=== PATIENT | female | born 1980 | race American Indian/Alaskan Native ===

== ENCOUNTER 2017-04-06 12:57 | Inpatient (IN) | payer OTHER, MEDICAID ==
[2017-04-06] MEDS ORDERED: Sodium Chloride 0.9% 1,000 ML IV ONE (13:27)
[2017-04-06] MEDS ORDERED: LORazepam 2 MG/ML Syringe IVPUSH ONE (13:28)
[2017-04-06] MEDS: Sodium Chloride 0.9% 10 ML Syringe FLUSH PRN ×2 (13:34→23:36)
[2017-04-06 13:44] LABS: CHLORIDE,CL 105 mmol/L (101-111); SODIUM,NA 138 mmol/L (135-145)
--- NOTE | 2017-04-06 14:18 | EDM.PDOC ---
ED HPI GENERAL MEDICAL PROBLEM - General Chief Complaint: General Stated Complaint: DOES NOT FEEL GOOD Time Seen by Provider: 04/06/17 13:30 Source of Information: Reports: Patient, RN, RN Notes Reviewed History Limitations: Reports: No Limitations - History of Present Illness INITIAL COMMENTS - FREE TEXT/NARRATIVE: Pt presents to the ER with c/o the feeling of having a panic attack. She states she is dizzy, weak, shaky, and anxious. She states she is a recovering alcoholic. She states she had not drank alcohol in a few months, but began drinking alcohol 2 nights ago. She states she drank a lot of alcohol, and that her last drink was yesterday afternoon/evening. She states she has had nausea and vomiting, as well as fever and chills for the past few days. She denies chest pain or sob. She states she has a history of iron deficient anemia, but has not been taking her iron pills lately. She states she would like to seek treatment for her alcohol abuse. She denies the need for help or referral, she states her mother would help her. Onset: Gradual Onset Date: 04/05/17 Severity: Moderate Improves with: Reports: None Worsens with: Reports: None Associated Symptoms: Reports: Fever/Chills, Nausea/Vomiting - Related Data Allergies Allergy/AdvReac Type Severity Reaction Status Date / Time No Known Allergies Allergy Verified 04/06/17 13:08 Home Meds: Home Meds . [No Known Home Meds] 04/06/17 [History] Past Medical History Hematologic History: Reports: Anemia - Infectious Disease History Infectious Disease History: Reports: Chicken Pox - Past Surgical History GI Surgical History: Reports: Appendectomy Social & Family History - Family History Family Medical History: Noncontributory - Tobacco Use Smoking Status *Q: Current Every Day Smoker Years of Tobacco use: 20 Packs/Tins Daily: 0.5 - Caffeine Use Caffeine Use: Reports: Coffee, Soda - Recreational Drug Use Recreational Drug Use: No ED ROS GENERAL - Review of Systems Review Of Systems: ROS reveals no pertinent complaints other than HPI. ED EXAM, GENERAL - Physical Exam Exam: See Below Exam Limited By: No Limitations General Appearance: Alert, WD/WN, Anxious Eye Exam: Right Eye: Bleeding (scleral hemorrhage, patient states this is weeks old from a trauma to the eye. ), Bilateral Eye: Normal Inspection Ears: Normal External Exam, Hearing Grossly Normal Nose: Normal Inspection Throat/Mouth: Normal Inspection, Normal Voice, No Airway Compromise Head: Atraumatic, Normocephalic Neck: Normal Inspection, Supple, Non-Tender, Full Range of Motion Respiratory/Chest: No Respiratory Distress, Lungs Clear, Normal Breath Sounds, No Accessory Muscle Use, Chest Non-Tender Cardiovascular: Normal Peripheral Pulses, Regular Rate, Rhythm, No Edema, No Gallop, No JVD, No Murmur, No Rub Peripheral Pulses: 2+: Radial (L), Radial (R) GI/Abdominal: Normal Bowel Sounds, Soft, Non-Tender, No Organomegaly, No Distention, No Abnormal Bruit, No Mass (Female) Exam: Deferred Rectal (Female) Exam: Deferred Back Exam: Normal Inspection, Full Range of Motion, NT Extremities: Normal Inspection, Normal Range of Motion, Non-Tender, Normal Capillary Refill, No Pedal Edema Neurological: Alert, Oriented, CN II-XII Intact, Normal Cognition, Normal Gait, Normal Reflexes, No Motor/Sensory Deficits Psychiatric: Normal Affect, Normal Mood Skin Exam: Warm, Dry, Intact, Normal Color, No Rash Lymphatic: No Adenopathy Course - Vital Signs Last Recorded V/S: Last Vital Signs Temp 98.9 F 04/06/17 15:15 Pulse 88 04/06/17 15:15 Resp 16 04/06/17 15:15 BP 113/64 04/06/17 15:15 Pulse Ox 98 04/06/17 15:15 - Orders/Labs/Meds Orders: Active Orders 24 hr Category Date Time Status Peripheral IV Care [RC] . DIRECTED Care 04/06/17 13:28 Active RED BLOOD CELLS LP [BBK] Stat Lab 04/06/17 13:15 Results TYPE AND SCREEN [BBK] Stat Lab 04/06/17 13:15 Results Sodium Chloride 0.9% [Normal Saline] 1,000 ml Med 04/06/17 13:27 Active IV .BOLUS Sodium Chloride 0.9% [Saline Flush] Med 04/06/17 13:27 Active 10 ml FLUSH ASDIRECTED PRN Peripheral IV Insertion Adult [OM.PC] Stat Oth 04/06/17 13:26 Ordered Medication Orders Sodium Chloride (Normal Saline) 1,000 mls @ 500 mls/hr IV .BOLUS ONE Stop: 04/06/17 15:26 Last Admin: 04/06/17 13:34 Dose: 500 mls/hr Sodium Chloride (Saline Flush) 10 ml FLUSH ASDIRECTED PRN PRN Reason: Keep Vein Open Last Admin: 04/06/17 13:34 Dose: 10 ml Labs: Laboratory Tests 04/06/17 04/06/17 04/06/17 Range/Units 13:15 13:15 13:15 WBC 5.8 (5.0-10.0) 10^3/uL RBC 3.64 L (4.2-5.4) 10^6/uL Hgb 6.7 L* (12.0-16.0) g/dL Hct 25.4 L (37.0-47.0) % MCV 69.8 L (80-100) fL MCH 18.4 L (27.0-34.0) pg MCHC 26.4 L (33.0-35.0) g/dL Plt Count 170 (150-450) 10^3/uL Neut % (Auto) 58.4 (42.2-75.2) % Lymph % (Auto) 31.4 (20.5-50.1) % [place] % (Auto) 8.3 H (2-8) % Eos % (Auto) 1.4 (1.0-3.0) % Baso % (Auto) 0.5 (0.0-1.0) % Sodium 138 (135-145) mmol/L Potassium 3.4 L (3.6-5.0) mmol/L Chloride 105 (101-111) mmol/L Carbon Dioxide 21.0 (21.0-31.0) mmol/L Anion Gap 15.4 BUN 5 L (7-18) mg/dL Creatinine 0.6 (0.6-1.3) mg/dL Est Cr Clr Drug Dosing 128.48 mL/min Estimated GFR (MDRD) > 60 BUN/Creatinine Ratio 8.33 Glucose 145 H (74-105) mg/dL Calcium 8.6 (8.4-10.2) mg/dl Total Bilirubin 0.6 (0.2-1.0) mg/dL AST 40 (10-42) IU/L ALT 47 (10-60) IU/L Alkaline Phosphatase 71 (42-121) IU/L Total Protein 7.8 (6.7-8.2) g/dl Albumin 3.9 (3.2-5.5) g/dl Globulin 3.9 Albumin/Globulin Ratio 1.00 Urine Color (YELLOW) Urine Appearance (CLEAR) Urine pH (5.0-9.0) Ur Specific Castell (1.005-1.030) Urine Protein (NEGATIVE) Urine Glucose (UA) (NEGATIVE) Urine Ketones (NEGATIVE) Urine Occult Blood (NEGATIVE) Urine Nitrite (NEGATIVE) Urine Bilirubin (NEGATIVE) Urine Urobilinogen (0.2-1.0) mg/dL Ur Leukocyte Esterase (NEGATIVE) Urine RBC /HPF Urine WBC (0-5/HPF) /HPF Ur Epithelial Cells /HPF Urine Bacteria (0-FEW/HPF) /HPF Urine HCG, Qual Urine Opiates Screen (NEGATIVE) Ur Oxycodone Screen (NEGATIVE) Urine Methadone Screen (NEGATIVE) Ur Barbiturates Screen (NEGATIVE) U Tricyclic Antidepress (NEGATIVE) Ur Phencyclidine Scrn (NEGATIVE) Ur Amphetamine Screen (NEGATIVE) U Methamphetamines Scrn (NEGATIVE) Urine MDMA Screen (NEGATIVE) U Benzodiazepines Scrn (NEGATIVE) Urine Cocaine Screen (NEGATIVE) U Marijuana (THC) Screen (NEGATIVE) Ethyl Alcohol mg/dL Blood Type O POSITIVE Gel Antibody Screen Negative Crossmatch See Detail 04/06/17 04/06/17 04/06/17 Range/Units 13:15 13:43 13:43 WBC (5.0-10.0) 10^3/uL RBC (4.2-5.4) 10^6/uL Hgb (12.0-16.0) g/dL Hct (37.0-47.0) % MCV (80-100) fL MCH (27.0-34.0) pg MCHC (33.0-35.0) g/dL Plt Count (150-450) 10^3/uL Neut % (Auto) (42.2-75.2) % Lymph % (Auto) (20.5-50.1) % Columbia % (Auto) (2-8) % Eos % (Auto) (1.0-3.0) % Baso % (Auto) (0.0-1.0) % Sodium (135-145) mmol/L Potassium (3.6-5.0) mmol/L Chloride (101-111) mmol/L Carbon Dioxide (21.0-31.0) mmol/L Anion Gap BUN (7-18) mg/dL Creatinine (0.6-1.3) mg/dL Est Cr Clr Drug Dosing mL/min Estimated GFR (MDRD) BUN/Creatinine Ratio Glucose (74-105) mg/dL Calcium (8.4-10.2) mg/dl Total Bilirubin (0.2-1.0) mg/dL AST (10-42) IU/L ALT (10-60) IU/L Alkaline Phosphatase (42-121) IU/L Total Protein (6.7-8.2) g/dl Albumin (3.2-5.5) g/dl Globulin Albumin/Globulin Ratio Urine Color (YELLOW) Urine Appearance (CLEAR) Urine pH (5.0-9.0) Ur Specific Castell (1.005-1.030) Urine Protein (NEGATIVE) Urine Glucose (UA) (NEGATIVE) Urine Ketones (NEGATIVE) Urine Occult Blood (NEGATIVE) Urine Nitrite (NEGATIVE) Urine Bilirubin (NEGATIVE) Urine Urobilinogen (0.2-1.0) mg/dL Ur Leukocyte Esterase (NEGATIVE) Urine RBC /HPF Urine WBC (0-5/HPF) /HPF Ur Epithelial Cells /HPF Urine Bacteria (0-FEW/HPF) /HPF Urine HCG, Qual Negative Urine Opiates Screen Negative (NEGATIVE) Ur Oxycodone Screen Negative (NEGATIVE) Urine Methadone Screen Negative (NEGATIVE) Ur Barbiturates Screen Negative (NEGATIVE) U Tricyclic Antidepress Negative (NEGATIVE) Ur Phencyclidine Scrn Negative (NEGATIVE) Ur Amphetamine Screen Negative (NEGATIVE) U Methamphetamines Scrn Negative (NEGATIVE) Urine MDMA Screen Negative (NEGATIVE) U Benzodiazepines Scrn Negative (NEGATIVE) Urine Cocaine Screen Negative (NEGATIVE) U Marijuana (THC) Screen Negative (NEGATIVE) Ethyl Alcohol 62 mg/dL Blood Type Gel Antibody Screen Crossmatch 04/06/17 Range/Units 13:43 WBC (5.0-10.0) 10^3/uL RBC (4.2-5.4) 10^6/uL Hgb (12.0-16.0) g/dL Hct (37.0-47.0) % MCV (80-100) fL MCH (27.0-34.0) pg MCHC (33.0-35.0) g/dL Plt Count (150-450) 10^3/uL Neut % (Auto) (42.2-75.2) % Lymph % (Auto) (20.5-50.1) % [place] % (Auto) (2-8) % Eos % (Auto) (1.0-3.0) % Baso % (Auto) (0.0-1.0) % Sodium (135-145) mmol/L Potassium (3.6-5.0) mmol/L Chloride (101-111) mmol/L Carbon Dioxide (21.0-31.0) mmol/L Anion Gap BUN (7-18) mg/dL Creatinine (0.6-1.3) mg/dL Est Cr Clr Drug Dosing mL/min Estimated GFR (MDRD) BUN/Creatinine Ratio Glucose (74-105) mg/dL Calcium (8.4-10.2) mg/dl Total Bilirubin (0.2-1.0) mg/dL AST (10-42) IU/L ALT (10-60) IU/L Alkaline Phosphatase (42-121) IU/L Total Protein (6.7-8.2) g/dl Albumin (3.2-5.5) g/dl Globulin Albumin/Globulin Ratio Urine Color Light yellow (YELLOW) Urine Appearance Clear (CLEAR) Urine pH 6.0 (5.0-9.0) Ur Specific Castell <= 1.005 (1.005-1.030) Urine Protein Negative (NEGATIVE) Urine Glucose (UA) Negative (NEGATIVE) Urine Ketones Negative (NEGATIVE) Urine Occult Blood Trace-lysed H (NEGATIVE) Urine Nitrite Negative (NEGATIVE) Urine Bilirubin Negative (NEGATIVE) Urine Urobilinogen 0.2 (0.2-1.0) mg/dL Ur Leukocyte Esterase Negative (NEGATIVE) Urine RBC 0-5 /HPF Urine WBC 0-5 (0-5/HPF) /HPF Ur Epithelial Cells Rare /HPF Urine Bacteria Rare (0-FEW/HPF) /HPF Urine HCG, Qual Urine Opiates Screen (NEGATIVE) Ur Oxycodone Screen (NEGATIVE) Urine Methadone Screen (NEGATIVE) Ur Barbiturates Screen (NEGATIVE) U Tricyclic Antidepress (NEGATIVE) Ur Phencyclidine Scrn (NEGATIVE) Ur Amphetamine Screen (NEGATIVE) U Methamphetamines Scrn (NEGATIVE) Urine MDMA Screen (NEGATIVE) U Benzodiazepines Scrn (NEGATIVE) Urine Cocaine Screen (NEGATIVE) U Marijuana (THC) Screen (NEGATIVE) Ethyl Alcohol mg/dL Blood Type Gel Antibody Screen Crossmatch Meds: Medications Generic Name Dose Route Start Last Admin Trade Name Freq PRN Reason Stop Dose Admin Sodium Chloride 1,000 mls @ 500 mls/hr 04/06/17 13:27 04/06/17 13:34 Normal Saline IV 04/06/17 15:26 500 mls/hr .BOLUS ONE Administration Sodium Chloride 10 ml 04/06/17 13:27 04/06/17 13:34 Saline Flush FLUSH 10 ml ASDIRECTED PRN Administration Keep Vein Open Discontinued Medications Generic Name Dose Route Start Last Admin Trade Name Freq PRN Reason Stop Dose Admin Lorazepam 1 mg 04/06/17 13:28 04/06/17 13:34 Ativan IVPUSH 04/06/17 13:29 1 mg ONETIME ONE Administration - Re-Assessments/Exams Free Text/Narrative Re-Assessment/Exam: 04/06/17 14:47 Patient states she has noticed some dark/black stools. Stool for guiac was done , NEGATIVE 04/06/17 15:[address] Richards. Dr. Richards agreed to admit the patient to inpatient acute status for blood transfusion. Departure - Departure Time of Disposition: 15:19 Disposition: Admitted As Inpatient 68 Condition: Fair Clinical Impression: Alcohol abuse Anemia Qualifiers: Anemia type: iron deficiency Iron deficiency anemia type: unspecified iron deficiency Qualified Code(s): D50.9 - Iron deficiency anemia, unspecified - Discharge Information Forms: ED Department Discharge - My Orders Last 24 Hours: My Active Orders 04/06/17 13:15 RED BLOOD CELLS LP [BBK] Stat TYPE AND SCREEN [BBK] Stat 04/06/17 13:26 Peripheral IV Insertion Adult [OM.PC] Stat 04/06/17 13:27 Sodium Chloride 0.9% [Normal Saline] 1,000 ml IV .BOLUS Sodium Chloride 0.9% [Saline Flush] 10 ml FLUSH ASDIRECTED PRN 04/06/17 13:28 Peripheral IV Care [RC] . DIRECTED - Assessment/Plan Last 24 Hours: My Active Orders 04/06/17 13:15 RED BLOOD CELLS LP [BBK] Stat TYPE AND SCREEN [BBK] Stat 04/06/17 13:26 Peripheral IV Insertion Adult [OM.PC] Stat 04/06/17 13:27 Sodium Chloride 0.9% [Normal Saline] 1,000 ml IV .BOLUS Sodium Chloride 0.9% [Saline Flush] 10 ml FLUSH ASDIRECTED PRN 04/06/17 13:28 Peripheral IV Care [RC] . DIRECTED
[2017-04-06] MEDS ORDERED: Zolpidem 5 MG Tab PO PRN (16:38)
[2017-04-06] MEDS ORDERED: Ondansetron 4 MG/2 ML SDV IVPUSH PRN (16:38)
[2017-04-06] MEDS ORDERED: LORazepam 2 MG/ML Syringe IVPUSH PRN (16:42)
[2017-04-06] MEDS ORDERED: LORazepam 1 MG Tab PO PRN (16:44)
[2017-04-06] MEDS ORDERED: diphenhydrAMINE 50 MG/ML SDV IVPUSH PRN (16:48)
[2017-04-06] MEDS: Potassium Chloride 10 MEQ Tab.ER PO SCH (17:23)
[2017-04-06] MEDS: Nicotine 14 MG/24 Hr Patch TRDERM SCH (17:23)
[2017-04-06] MEDS: Acetaminophen 325 MG Tab PO PRN (17:56)
--- NOTE | 2017-04-06 20:31 | HP ---
CHIEF COMPLAINT: Increasing weakness, tiredness, and anxiety spells. HISTORY OF PRESENTING ILLNESS: Mrs. Jenn Olivarez is a 36-year-old female with medical history significant for chronic alcohol use, chronic tobacco use, who presented to the ER after starting to drink from Tuesday. She has been drinking for the last 2 days and has been feeling very anxious and after coming to the emergency room, she had further workup that showed evidence of severe anemia resulting in admission to the hospital. At this time, the patient claims that for the last few months, the patient has been experiencing some episodes of anxiety attacks, where she feels doomed and has palpitations, sweating, and feels as if the world is coming to an end. The anxiety attack comes once in a month and lasts for only few minutes and they are gone. She also complains of increasing chest pain and shortness of breath during these attacks. She had remained sober for last 2 months, but started drinking since Tuesday. She has been drinking beer and whiskey for the last 2 days and the last drink was yesterday evening, but now she complains of having feeling palpitations and anxiety, possible withdrawals. The patient denied any history of chest pains on exertion, but has dyspnea on exertion. No history of orthopnea or paroxysmal nocturnal dyspnea. The patient denied any history of hematemesis, hematochezia, or melanotic stools. She claims that she had some vomiting episodes x2 this morning, which was bilious stained. No blood seen in the vomitus. She also had some loose stools which were brown in color. No blood seen in the loose stools. She denied any history of peptic ulcer disease in the past. She never had any colonoscopy or endoscopy done in the past. Normal bowel and bladder habits otherwise. She denies any headaches. No changes in the vision. No changes in the weight as per the patient. She denies any cough with sputum in the last few days. At times, when she gets these panic attacks, she feels feverish and chills. REVIEW OF SYSTEMS: A complete review of system including skin, ear, nose, and throat; cardiovascular system, respiratory system, gastrointestinal system, genitourinary system, hematology, oncology, neurology, allergy/immunology, and endocrinology were all evaluated and were negative except for the above-said notes. PAST MEDICAL HISTORY: Significant for: 1. Chronic alcohol use. 2. Chronic tobacco use. 3. depression with her third and her last . 4. History of urinary tract infection. 5. Dental caries. PAST SURGICAL HISTORY: Significant for: 1. Tubal ligation. 2. Appendicectomy. ALLERGIES: No known drug allergies. SOCIAL HISTORY: Chronic history of tobacco use, one pack of cigarettes for the last 2 to 3 days. Chronic history of alcohol use. Quit drinking 2 months back, but started drinking again on Tuesday. FAMILY HISTORY: Significant for diabetes in her aunts and hypertension in her aunts. Father at age 25, motor vehicle accident. History of tobacco use in her mother. HOME MEDICATIONS: Pain medications as needed. No regular medications taken at home. PHYSICAL EXAMINATION: Vital Signs: Temperature of 98.9, pulse of 88, blood pressure 113/64, respiratory rate of 16, saturating at 98% on room air. General Appearance: The patient is well oriented to time, place, and person. Follows commands spontaneously. Cardiovascular System: S1, S2 heard with normal intensity. No gallops. Respiratory System: Clear to auscultation bilaterally. No wheeze. No crepitations. Abdomen: Soft. Bowel sounds positive. Nontender. No rigidity. Extremities: No edema in bilateral lower extremities. Neurologic: No gross focal neurological deficits. LABORATORY DATA: 1. WBC 5.8, hemoglobin 6.7, hematocrit 25.4, platelet count 170. 2. Sodium 138, potassium 3.4, chloride 105, bicarb 21, BUN 5, creatinine 0.6, glucose 145, calcium 8.6, AST 40, ALT 47. 3. Urinalysis negative. 4. Urine toxicology screen negative. Ethyl alcohol is 62. ASSESSMENT: 1. Severe anemia. 2. Possible panic attacks. 3. Chronic alcohol use with possible alcohol withdrawal. 4. Chronic tobacco use. PLAN: 1. Severe anemia. The patient presents with increasing weakness, tiredness, and is noted to have severe anemia with hemoglobin dropping down to 6.7, exact etiology not clear. The patient claims that she has iron-deficiency anemia and was on iron pills in the past, but quit taking iron pills as they have caused constipation. The patient denies any hematemesis, hematochezia, or melanotic stools and in the ER, the patient had stool occult blood which was negative. Unsure if the patient has any GI bleed. The patient also had some episodes of nausea and vomiting and diarrhea which were within normal limits. No blood seen in the vomitus or in the diarrhea. We will obtain serum iron, ferritin, TIBC, and also B12 and folate levels, and we will also obtain a peripheral blood smear, and the patient would benefit from blood transfusion at least 2 units and recheck a hemoglobin in the a.m. The patient was explained about the side effects profile. Informed consent is obtained after explaining the risks, benefits, and complications of blood transfusion. 2. Hypokalemia, mild in nature. We will replace with oral potassium chloride. Recheck a basic metabolic panel in the a.m. 3. Chronic history of alcohol use and tobacco use. The patient is educated about tobacco cessation and alcohol cessation. Strongly encouraged her to quit drinking and smoking which she understands and verbalized the same. We will prescribe nicotine transdermal patch while in the hospital. 4. Possible withdrawal. The patient was noted to have possible withdrawals at the time of admission. We will have her on CIWA protocol. We will use Ativan as needed for anxiety and withdrawals. 5. DVT prophylaxis. Given her severe anemia, we will avoid any heparin products for now. Use SCDs for DVT prophylaxis. 6. Code status. The patient wants to be full code. 7. Reviewed the labs and medications. Reviewed the old chart. Discussed with ER physician regarding the plan of care. Discussed with other staff members. [facility] /[id number]
[2017-04-07 06:57] LABS: CHLORIDE,CL 105 mmol/L (101-111); SODIUM,NA 138 mmol/L (135-145)
[2017-04-07] MEDS: Potassium Chloride 10 MEQ Tab.ER PO SCH (08:52)
[2017-04-07] MEDS: Nicotine 14 MG/24 Hr Patch TRDERM SCH (08:52)
[2017-04-07] MEDS: Acetaminophen 325 MG Tab PO PRN (08:58)
[2017-04-07] MEDS ORDERED: FLU VAC QS 17-18(4YR UP)CEL/PF 60 MCG/0.5 ML Syringe IM ONE (11:49)
[2017-04-07] MEDS ORDERED: Potassium Chloride 10 MEQ Tab.ER PO SCH (12:00)
--- NOTE | 2017-04-07 13:53 | DISCH ---
ADMITTING DIAGNOSES: Increasing weakness and tiredness from symptomatic anemia. DISCHARGE DIAGNOSES: 1. Increasing weakness and tiredness from symptomatic anemia, treated with blood transfusion. 2. Severe anemia, possible iron deficiency, requiring blood transfusion. 3. Hypokalemia. 4. Hypomagnesemia. 5. Chronic alcohol use. 6. Chronic tobacco use. HISTORY OF PRESENTING ILLNESS: Mrs. Jenn Olivarez is a 36-year-old female with medical history significant for chronic alcohol use, chronic tobacco use, chronic iron-deficiency anemia, was on iron supplement in the past, but quit taking it as it was causing her constipation, came to the hospital with increasing weakness and tiredness, and was noted to have very low hemoglobin. Her hemoglobin was down to 6.7 at the time of admission, resulting in symptomatic anemia. She got admitted to the hospital and received 2 units of packed red blood cells after which hemoglobin improved to 8.9. Her symptoms have much improved. She was also noted to have hypokalemia and hypomagnesemia, requiring potassium chloride, and oral magnesium oxide supplement. She was given oral Senokot at the time of discharge. We did order for iron, B12, folate, TIBC, ferritin studies, and peripheral smear all of which are still pending at the time of this discharge. The patient is advised to follow with her primary care physician next 1 week of time, and then follow up with the reports. She is prescribed multivitamin tablet and also an iron with vitamin C tablet. She is advised to be compliant with medications. She is educated about alcohol cessation and tobacco cessation, and strongly encouraged her to quit drinking and smoking which she understands and verbalized the same. She is also prescribed nicotine transdermal patch to help her quit smoking. She is also advised to follow with GI clinic as an outpatient for a scheduled colonoscopy and endoscopy for further evaluation of iron-deficiency anemia and possible biopsy of the small intestine at that time to rule out any celiac disease in this patient. She is discharged home in stable condition. She remained hemodynamically stable on this admission. DISCHARGE MEDICATIONS: 1. Iron with vitamin C one tablet daily. 2. Magnesium oxide 500 mg twice a day for next 1 week. 3. Multivitamin 1 tablet daily. 4. Nicotine transdermal patch for 1 week 14 mg. 5. Potassium chloride 20 mEq twice a day for next 1 week. 6. Senokot as needed for constipation. PHYSICAL EXAMINATION: Vital Signs: On the day of discharge vitals; temperature of 98.1, pulse of 72, blood pressure 101/63, respiratory rate of 20, saturating at 99% on room air. General Appearance: The patient is well oriented to time, place, and person. Follows commands spontaneously. Cardiovascular System: S1, S2 heard with normal intensity. No gallops. Respiratory System: Clear to auscultation bilaterally. No wheeze. No crepitations. Abdomen: Soft. Bowel sounds positive. Nontender. No rigidity. Extremities: No edema bilateral lower extremities. Neurology: No gross focal neurological deficits. CONDITION ON ADMISSION: Poor. CONDITION ON DISCHARGE: Stable. ACTIVITY: As tolerated. DIET: Regular diet. The patient is advised to eat meat products to improve her iron-deficiency anemia. She is advised to add vegetables and fiber to avoid any constipation. FOLLOWUP: Follow with primary care physician next 1 week of time for followup on the labs ordered for her anemia which are still pending at this time, which include iron, B12, folate, TIBC, ferritin, peripheral smear, B12 labs. This will be followed as an outpatient with her primary care physician, appointment. Spent over 35 minutes of time in evaluating and treating this patient and coordination of cares. [facility] /[id number]
== END 2017-04-07 12:05 | disposition home or self-care (01) | DRG 812 ==
LOC: DL.ED 12:57 → DL.MS 15:47 → UNDOADMIN 15:47 → DL.MS 15:48
PROVIDERS: ADMIT Internal Medicine; ATTEND Internal Medicine
PROC: 30233N1 Transfusion of Nonautologous Red Blood Cells into Peripheral Vein, Percutaneous Approach (ICD-10-PCS; principal; 2017-04-06)
DX: D50.9 Iron deficiency anemia, unspecified (principal); E87.6 Hypokalemia; E83.42 Hypomagnesemia; F41.9 Anxiety disorder, unspecified; F17.210 Nicotine dependence, cigarettes, uncomplicated; F10.10 Alcohol abuse, uncomplicated
CPT/HCPCS: 36415; 36430; 80053; 80305; 81001; 81025; 82272; 82607; 82728; 82746; 83540; 83550; 83735; 84100; 85008; 85025; 86850; 86900; 86901; 86920; 86922; 90674; 96361; 96374; 99283; A9270-GY; G0480; J2060; J7030; J7050; P9016

== ENCOUNTER 2017-04-08 20:00 | Emergency (ER) | payer OTHER, MEDICAID ==
[2017-04-08] MEDS ORDERED: chlordiazePOXIDE 25 MG Cap PO ONE (20:23)
--- NOTE | 2017-04-08 20:25 | EDM.PDOC ---
ED HPI GENERAL MEDICAL PROBLEM - General Chief Complaint: General Stated Complaint: [facility] Time Seen by Provider: 04/08/17 20:20 Source of Information: Reports: Patient History Limitations: Reports: No Limitations - History of Present Illness INITIAL COMMENTS - FREE TEXT/NARRATIVE: 36 yo [place] Female c/o dizziness s/p hosp d/c yesterday after two units of blood for Hgb. 6.7, Iron 15 and after was 8.9. PMHx. Alcoholic Pt. very anxious. Pt. admits to heavy menses and has delivered seven children Onset: Today Onset Date: 04/08/17 Onset Time: 13:00 Duration: Hour(s): Location: Reports: Generalized (anxiety) Severity: Moderate Improves with: Reports: None Worsens with: Reports: None Context: Reports: Other (PMHx. ETOH) Associated Symptoms: Reports: Chest Pain, Shortness of Breath Bilateral Temporal Headache Pain Score (Numeric/FACES): 4 - Related Data Allergies Allergy/AdvReac Type Severity Reaction Status Date / Time No Known Allergies Allergy Verified 04/08/17 20:25 Home Meds: Home Meds Iron,Carbonyl/Ascorbic Acid [Iron 100-Vitamin C Tablet] 1 each PO DAILY #30 tablet 04/07/17 [Rx] Magnesium Oxide 500 mg PO BIDM #14 tablet 04/07/17 [Rx] Multivitamin [Multi-Vitamin Daily] 1 each PO DAILY #30 tablet 04/07/17 [Rx] Nicotine [Habitrol] 14 mg TRDERM DAILY #7 patch 04/07/17 [Rx] Potassium Chloride [Klor-Con 10] 20 meq PO BIDMEALS #14 tab.er 04/07/17 [Rx] Sennosides/Docusate Sodium [Senna S Tablet] 1 each PO BID PRN #30 tablet [Rx] 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 (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 Below) Other OB/BYN History: tubes ties win 2009 Musculoskeletal History: Reports: Back Pain, Chronic Psychiatric History: Reports: Anxiety, Panic Attack Hematologic History: Reports: Anemia - Infectious Disease History Infectious Disease History: Reports: Chicken Pox - Past Surgical History GI Surgical History: Reports: Appendectomy Social & Family History - Family History Family Medical History: Noncontributory - Tobacco Use Smoking Status *Q: Current Some Day Smoker Years of Tobacco use: 20 Packs/Tins Daily: 0.5 Second Hand Smoke Exposure: Yes - Caffeine Use Caffeine Use: Reports: Soda - Alcohol Use Days Per Week of Alcohol Use: 2 Number of Drinks Per Day: 5 Total Drinks Per Week: 10 - Recreational Drug Use Recreational Drug Use: No ED ROS GENERAL - Review of Systems Review Of Systems: See Below Constitutional: Reports: No Symptoms HEENT: Reports: No Symptoms Respiratory: Reports: Shortness of Breath Cardiovascular: Reports: Chest Pain Endocrine: Reports: No Symptoms GI/Abdominal: Reports: No Symptoms : Reports: No Symptoms Musculoskeletal: Reports: No Symptoms Skin: Reports: No Symptoms Neurological: Reports: No Symptoms Psychiatric: Reports: Anxiety Hematologic/Lymphatic: Reports: No Symptoms Immunologic: Reports: No Symptoms ED EXAM, GENERAL - Physical Exam Exam: See Below Exam Limited By: No Limitations General Appearance: Alert, WD/WN, No Apparent Distress, Anxious Eye Exam: Bilateral Eye: EOMI, PERRL Ears: Normal External Exam Nose: Normal Inspection Throat/Mouth: Normal Inspection Head: Atraumatic Neck: Normal Inspection Respiratory/Chest: No Respiratory Distress, Lungs Clear, Normal Breath Sounds Cardiovascular: Normal Peripheral Pulses, Regular Rate, Rhythm, No Edema Peripheral Pulses: 2+: Radial (L), Radial (R) GI/Abdominal: Normal Bowel Sounds Back Exam: Normal Inspection Extremities: Normal Inspection, Normal Range of Motion Neurological: Alert, Oriented, CN II-XII Intact Psychiatric: Normal Affect, Normal Mood Skin Exam: Warm, Dry, Intact Lymphatic: No Adenopathy Course - Vital Signs Last Recorded V/S: Last Vital Signs Temp 36.4 C 04/08/17 20:06 Pulse 108 H 04/08/17 20:06 Resp 20 04/08/17 20:06 BP 130/65 04/08/17 20:06 Pulse Ox 100 04/08/17 20:06 - Orders/Labs/Meds Orders: Active Orders 24 hr Category Date Time Status EKG Documentation Completion [RC] STAT Care 04/08/17 20:24 Active Labs: Laboratory Tests 04/08/17 04/08/17 04/08/17 Range/Units 20:28 20:28 20:35 WBC 7.1 (5.0-10.0) 10^3/uL RBC 4.56 (4.2-5.4) 10^6/uL Hgb 9.6 L (12.0-16.0) g/dL Hct 33.8 L (37.0-47.0) % MCV 74.1 L (80-100) fL MCH 21.1 L (27.0-34.0) pg MCHC 28.4 L (33.0-35.0) g/dL Plt Count 194 (150-450) 10^3/uL Neut % (Auto) 68.7 (42.2-75.2) % Lymph % (Auto) 23.4 (20.5-50.1) % Hughes % (Auto) 5.8 (2-8) % Eos % (Auto) 1.3 (1.0-3.0) % Baso % (Auto) 0.8 (0.0-1.0) % Troponin I (0.00-0.02) ng/ml Urine Color Yellow (YELLOW) Urine Appearance Slightly cloudy (CLEAR) Urine pH 7.0 (5.0-9.0) Ur Specific Taylor 1.010 (1.005-1.030) Urine Protein Negative (NEGATIVE) Urine Glucose (UA) Negative (NEGATIVE) Urine Ketones Negative (NEGATIVE) Urine Occult Blood Trace-intact H (NEGATIVE) Urine Nitrite Negative (NEGATIVE) Urine Bilirubin Negative (NEGATIVE) Urine Urobilinogen 0.2 (0.2-1.0) mg/dL Ur Leukocyte Esterase Trace H (NEGATIVE) Urine RBC 0-5 /HPF Urine WBC 0-5 (0-5/HPF) /HPF Ur Epithelial Cells Moderate H /HPF Urine Bacteria Few (0-FEW/HPF) /HPF Urine Opiates Screen Negative (NEGATIVE) Ur Oxycodone Screen Negative (NEGATIVE) Urine Methadone Screen Negative (NEGATIVE) Ur Barbiturates Screen Negative (NEGATIVE) U Tricyclic Antidepress Negative (NEGATIVE) Ur Phencyclidine Scrn Negative (NEGATIVE) Ur Amphetamine Screen Negative (NEGATIVE) U Methamphetamines Scrn Negative (NEGATIVE) Urine MDMA Screen Negative (NEGATIVE) U Benzodiazepines Scrn Negative (NEGATIVE) Urine Cocaine Screen Negative (NEGATIVE) U Marijuana (THC) Screen Negative (NEGATIVE) 04/08/17 Range/Units 20:35 WBC (5.0-10.0) 10^3/uL RBC (4.2-5.4) 10^6/uL Hgb (12.0-16.0) g/dL Hct (37.0-47.0) % MCV (80-100) fL MCH (27.0-34.0) pg MCHC (33.0-35.0) g/dL Plt Count (150-450) 10^3/uL Neut % (Auto) (42.2-75.2) % Lymph % (Auto) (20.5-50.1) % Hughes % (Auto) (2-8) % Eos % (Auto) (1.0-3.0) % Baso % (Auto) (0.0-1.0) % Troponin I < 0.02 (0.00-0.02) ng/ml Urine Color (YELLOW) Urine Appearance (CLEAR) Urine pH (5.0-9.0) Ur Specific Taylor (1.005-1.030) Urine Protein (NEGATIVE) Urine Glucose (UA) (NEGATIVE) Urine Ketones (NEGATIVE) Urine Occult Blood (NEGATIVE) Urine Nitrite (NEGATIVE) Urine Bilirubin (NEGATIVE) Urine Urobilinogen (0.2-1.0) mg/dL Ur Leukocyte Esterase (NEGATIVE) Urine RBC /HPF Urine WBC (0-5/HPF) /HPF Ur Epithelial Cells /HPF Urine Bacteria (0-FEW/HPF) /HPF Urine Opiates Screen (NEGATIVE) Ur Oxycodone Screen (NEGATIVE) Urine Methadone Screen (NEGATIVE) Ur Barbiturates Screen (NEGATIVE) U Tricyclic Antidepress (NEGATIVE) Ur Phencyclidine Scrn (NEGATIVE) Ur Amphetamine Screen (NEGATIVE) U Methamphetamines Scrn (NEGATIVE) Urine MDMA Screen (NEGATIVE) U Benzodiazepines Scrn (NEGATIVE) Urine Cocaine Screen (NEGATIVE) U Marijuana (THC) Screen (NEGATIVE) Meds: Medications Discontinued Medications Generic Name Dose Route Start Last Admin Trade Name Freq PRN Reason Stop Dose Admin Chlordiazepoxide HCl 25 mg 04/08/17 20:23 04/08/17 20:47 Librium PO 04/08/17 20:24 25 mg ONETIME ONE Administration Departure - Departure Time of Disposition: 22:27 Disposition: Home, Self-Care 01 Condition: Good Clinical Impression: Anxiety Anemia Qualifiers: Anemia type: iron deficiency Iron deficiency anemia type: unspecified iron deficiency Qualified Code(s): D50.9 - Iron deficiency anemia, unspecified Iron deficiency anemia Qualifiers: Iron deficiency anemia type: unspecified iron deficiency Qualified Code(s): D50.9 - Iron deficiency anemia, unspecified - Discharge Information Forms: ED Department Discharge Additional Instructions: Take Medications as directed Stop all Alcohol use F/U w/ PCP - My Orders Last 24 Hours: My Active Orders 04/08/17 20:24 EKG Documentation Completion [RC] STAT - Assessment/Plan Last 24 Hours: My Active Orders 04/08/17 20:24 EKG Documentation Completion [RC] STAT
--- NOTE | 2017-04-13 10:29 | EKG ---
04/08/2017- CATALINA LOPEZ M - EKG done on 36-year-old female showing sinus tachycardia, heart rate of 103 beats per minute, normal axis, normal intervals. No acute ST-T wave changes. [facility] /[id number] MTDD
== END 2017-04-08 22:43 | disposition home or self-care (01) ==
LOC: DL.ED 20:00
DX: D50.9 Iron deficiency anemia, unspecified (principal); F41.9 Anxiety disorder, unspecified; F17.210 Nicotine dependence, cigarettes, uncomplicated; Z79.899 Other long term (current) drug therapy
CPT/HCPCS: 36415; 80305; 81001; 84484; 85025; 93005; 99284; A9270

== ENCOUNTER 2017-10-05 19:16 | Emergency (ER) | payer OTHER, MEDICAID ==
[2017-10-05] MEDS ORDERED: Sodium Chloride 0.9% 1,000 ML IV ONE (19:32)
[2017-10-05] MEDS ORDERED: Ondansetron 4 MG/2 ML SDV IV ONE (19:32)
--- NOTE | 2017-10-05 20:15 | EDM.PDOC ---
ED HPI GENERAL MEDICAL PROBLEM - General Chief Complaint: General Stated Complaint: [id number] HARD TIME BREATHING FLU? Time Seen by Provider: 10/05/17 20:05 Source of Information: Reports: Patient History Limitations: Reports: No Limitations - History of Present Illness INITIAL COMMENTS - FREE TEXT/NARRATIVE: This 37 yo female patient reports to the ED with increased shortness of breath, a sore throat, nausea and some abdominal pain. The patient reports that her symptoms started today after she got to work. The patient reports she initially thought is was an anxiety attack, but when her symptoms kept getting worse, she decided to come to the ED to be checked. The patient reports that her breathing is much better at this time. The patient no longer feels nauseated. The patient' s abdominal pain is almost gone. The patient reports that she did drink Gatorade and took Tylenol prior to coming to the ED. At the time of the assessment, the patient had already received 1/2 liter of IV fluid and IV Zofran. The patient reports that she is currently on her menstrual cycle. 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 Pain Score (Numeric/FACES): 6 - Related Data Allergies Allergy/AdvReac Type Severity Reaction Status Date / Time No Known Allergies Allergy Verified 10/05/17 19:24 Home Meds: Home Meds Iron,Carbonyl/Ascorbic Acid [Iron 100-Vitamin C Tablet] 1 each PO DAILY #30 tablet 04/07/17 [Rx] Multivitamin [Multi-Vitamin Daily] 1 each PO DAILY #30 tablet 04/07/17 [Rx] Nicotine [Habitrol] 14 mg TRDERM DAILY #7 patch 04/07/17 [Rx] Potassium Chloride [Klor-Con 10] 20 meq PO BIDMEALS #14 tab.er 04/07/17 [Rx] Past Medical History HEENT History: Reports: None Cardiovascular History: Reports: None 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) Other OB/BYN History: tubes ties win 2010 Musculoskeletal History: Reports: Back Pain, Chronic Psychiatric History: Reports: Anxiety, Panic Attack Hematologic History: Reports: Anemia - Infectious Disease History Infectious Disease History: Reports: Chicken Pox - Past Surgical History HEENT Surgical History: Reports: Other (See Below) Other HEENT Surgeries/Procedures: teeth removed upper gum GI Surgical History: Reports: Appendectomy Female Surgical History: Reports: Tubal Ligation Social & Family History - Family History Family Medical History: Noncontributory - Tobacco Use Smoking Status *Q: Current Some Day Smoker Years of Tobacco use: 20 Packs/Tins Daily: 0.1 Second Hand Smoke Exposure: Yes - Caffeine Use Caffeine Use: Reports: Soda - Alcohol Use Days Per Week of Alcohol Use: 2 Number of Drinks Per Day: 5 Total Drinks Per Week: 10 - Recreational Drug Use Recreational Drug Use: No ED ROS GENERAL - Review of Systems Review Of Systems: ROS reveals no pertinent complaints other than HPI. ED EXAM, GENERAL - Physical Exam Exam: See Below Exam Limited By: No Limitations General Appearance: Alert, WD/WN, Mild Distress Eye Exam: Bilateral Eye: EOMI, Normal Inspection, PERRL Ears: Normal External Exam, Normal Canal, Hearing Grossly Normal, Normal TMs Nose: Normal Inspection, Normal Mucosa, No Blood Throat/Mouth: Normal Inspection, Normal Lips, Normal Teeth, Normal Gums, Normal Oropharynx, Normal Voice, No Airway Compromise Head: Atraumatic, Normocephalic Neck: Normal Inspection, Supple, Non-Tender, Full Range of Motion Respiratory/Chest: No Respiratory Distress, Lungs Clear, Normal Breath Sounds, No Accessory Muscle Use, Chest Non-Tender Cardiovascular: Normal Peripheral Pulses, Regular Rate, Rhythm, No Edema, No Gallop, No JVD, No Murmur, No Rub GI/Abdominal: Normal Bowel Sounds, Soft, No Organomegaly, No Distention, No Abnormal Bruit, No Mass, Tender (mild left lower abdominal tenderness) (Female) Exam: Deferred Rectal (Female) Exam: Deferred Back Exam: Normal Inspection, Full Range of Motion, NT Extremities: Normal Inspection, Normal Range of Motion, Non-Tender, Normal Capillary Refill, No Pedal Edema Neurological: Alert, Oriented, CN II-XII Intact, Normal Cognition, Normal Gait, Normal Reflexes, No Motor/Sensory Deficits Psychiatric: Normal Affect, Normal Mood Skin Exam: Warm, Dry, Intact, Normal Color, No Rash Lymphatic: No Adenopathy Course - Vital Signs Last Recorded V/S: Last Vital Signs Temp 36.6 C 10/05/17 19:19 Pulse 106 H 10/05/17 19:19 Resp 18 10/05/17 19:19 BP 131/78 10/05/17 19:19 Pulse Ox 100 10/05/17 19:19 - Orders/Labs/Meds Orders: Active Orders 24 hr Category Date Time Status CULTURE STREP A CONFIRMATION [RM] Stat Lab 10/05/17 19:31 Results DRUG SCREEN URINE BIORAD [URCHEM] Stat Lab 10/05/17 19:31 Ordered HCG QUALITATIVE,URINE [URCHEM] Stat Lab 10/05/17 19:31 Ordered INFLUENZA A+B AG SCREEN [RM] Stat Lab 10/05/17 19:31 Ordered STREP SCRN A RAPID W CULT CONF [RM] Stat Lab 10/05/17 19:31 Ordered UA W/MICROSCOPIC [URIN] Stat Lab 10/05/17 19:31 Ordered Labs: Laboratory Tests 10/05/17 10/05/17 10/05/17 Range/Units 19:31 19:40 19:40 WBC (5.0-10.0) 10^3/uL RBC (4.2-5.4) 10^6/uL Hgb (12.0-16.0) g/dL Hct (37.0-47.0) % MCV (80-100) fL MCH (27.0-34.0) pg MCHC (33.0-35.0) g/dL Plt Count (150-450) 10^3/uL Neut % (Auto) (42.2-75.2) % Lymph % (Auto) (20.5-50.1) % [place] % (Auto) (2-8) % Eos % (Auto) (1.0-3.0) % Baso % (Auto) (0.0-1.0) % Sodium (135-145) mmol/L Potassium (3.6-5.0) mmol/L Chloride (101-111) mmol/L Carbon Dioxide (21.0-31.0) mmol/L Anion Gap BUN (7-18) mg/dL Creatinine (0.6-1.3) mg/dL Est Cr Clr Drug Dosing mL/min Estimated GFR (MDRD) BUN/Creatinine Ratio Glucose (74-105) mg/dL Calcium (8.4-10.2) mg/dl Total Bilirubin (0.2-1.0) mg/dL AST (10-42) IU/L ALT (10-60) IU/L Alkaline Phosphatase (42-121) IU/L Total Protein (6.7-8.2) g/dl Albumin (3.2-5.5) g/dl Globulin Albumin/Globulin Ratio Urine Color Light yellow (YELLOW) Urine Appearance Slightly cloudy (CLEAR) Urine pH 6.0 (5.0-9.0) Ur Specific Haskell <= 1.005 (1.005-1.030) Urine Protein Negative (NEGATIVE) Urine Glucose (UA) Negative (NEGATIVE) Urine Ketones Negative (NEGATIVE) Urine Occult Blood Trace-lysed H (NEGATIVE) Urine Nitrite Negative (NEGATIVE) Urine Bilirubin Negative (NEGATIVE) Urine Urobilinogen 0.2 (0.2-1.0) mg/dL Ur Leukocyte Esterase Small H (NEGATIVE) Urine RBC 0-5 /HPF Urine WBC 10-20 H (0-5/HPF) /HPF Ur Epithelial Cells Few /HPF Amorphous Sediment Rare (0/HPF) /HPF Urine Bacteria Few (0-FEW/HPF) /HPF Urine Mucus Rare /LPF Urine HCG, Qual Negative Urine Opiates Screen Negative (NEGATIVE) Ur Oxycodone Screen Negative (NEGATIVE) Urine Methadone Screen Negative (NEGATIVE) Ur Barbiturates Screen Negative (NEGATIVE) U Tricyclic Antidepress Negative (NEGATIVE) Ur Phencyclidine Scrn Negative (NEGATIVE) Ur Amphetamine Screen Negative (NEGATIVE) U Methamphetamines Scrn Negative (NEGATIVE) Urine MDMA Screen Negative (NEGATIVE) U Benzodiazepines Scrn Negative (NEGATIVE) Urine Cocaine Screen Negative (NEGATIVE) U Marijuana (THC) Screen Negative (NEGATIVE) 10/05/17 10/05/17 Range/Units 19:48 19:48 WBC 7.9 (5.0-10.0) 10^3/uL RBC 4.13 L (4.2-5.4) 10^6/uL Hgb 12.5 D (12.0-16.0) g/dL Hct 38.6 (37.0-47.0) % MCV 93.5 D (80-100) fL MCH 30.3 (27.0-34.0) pg MCHC 32.4 L (33.0-35.0) g/dL Plt Count 146 L (150-450) 10^3/uL Neut % (Auto) 70.2 (42.2-75.2) % Lymph % (Auto) 20.4 L (20.5-50.1) % [place] % (Auto) 7.5 (2-8) % Eos % (Auto) 1.5 (1.0-3.0) % Baso % (Auto) 0.4 (0.0-1.0) % Sodium 135 (135-145) mmol/L Potassium 3.5 L (3.6-5.0) mmol/L Chloride 102 (101-111) mmol/L Carbon Dioxide 23.0 (21.0-31.0) mmol/L Anion Gap 13.5 BUN 6 L (7-18) mg/dL Creatinine 0.6 (0.6-1.3) mg/dL Est Cr Clr Drug Dosing 122.51 mL/min Estimated GFR (MDRD) > 60 BUN/Creatinine Ratio 10.00 Glucose 169 H (74-105) mg/dL Calcium 8.4 (8.4-10.2) mg/dl Total Bilirubin 0.8 (0.2-1.0) mg/dL AST 98 H (10-42) IU/L ALT 93 H (10-60) IU/L Alkaline Phosphatase 82 (42-121) IU/L Total Protein 8.1 (6.7-8.2) g/dl Albumin 4.3 (3.2-5.5) g/dl Globulin 3.8 Albumin/Globulin Ratio 1.13 Urine Color (YELLOW) Urine Appearance (CLEAR) Urine pH (5.0-9.0) Ur Specific Haskell (1.005-1.030) Urine Protein (NEGATIVE) Urine Glucose (UA) (NEGATIVE) Urine Ketones (NEGATIVE) Urine Occult Blood (NEGATIVE) Urine Nitrite (NEGATIVE) Urine Bilirubin (NEGATIVE) Urine Urobilinogen (0.2-1.0) mg/dL Ur Leukocyte Esterase (NEGATIVE) Urine RBC /HPF Urine WBC (0-5/HPF) /HPF Ur Epithelial Cells /HPF Amorphous Sediment (0/HPF) /HPF Urine Bacteria (0-FEW/HPF) /HPF Urine Mucus /LPF Urine HCG, Qual Urine Opiates Screen (NEGATIVE) Ur Oxycodone Screen (NEGATIVE) Urine Methadone Screen (NEGATIVE) Ur Barbiturates Screen (NEGATIVE) U Tricyclic Antidepress (NEGATIVE) Ur Phencyclidine Scrn (NEGATIVE) Ur Amphetamine Screen (NEGATIVE) U Methamphetamines Scrn (NEGATIVE) Urine MDMA Screen (NEGATIVE) U Benzodiazepines Scrn (NEGATIVE) Urine Cocaine Screen (NEGATIVE) U Marijuana (THC) Screen (NEGATIVE) Meds: Medications Discontinued Medications Generic Name Dose Route Start Last Admin Trade Name Kalq PRN Reason Stop Dose Admin Sodium Chloride 1,000 mls @ 999 mls/hr 10/05/17 19:32 10/05/17 19:57 Normal Saline IV 10/05/17 20:32 999 mls/hr .BOLUS ONE Administration Ondansetron HCl 4 mg 10/05/17 19:32 10/05/17 19:56 Zofran IV 10/05/17 19:33 4 mg ONETIME ONE Administration Departure - Departure Time of Disposition: 20:54 Disposition: Home, Self-Care 01 Condition: Fair Clinical Impression: Anxiety - Discharge Information Instructions: Panic Attacks, [id number] Referrals: Tyra Filney MD [Primary Care Provider] - Forms: ED Department Discharge Care Plan Goals: The patient was advised of the examination and lab results during the visit. The patient was encouraged to follow-up with her primary care facility for continued evaluation and further treatment. If the patient has any additional symptoms or concerns, the patient should either visit her primary care facility or return to the emergency department. - My Orders Last 24 Hours: My Active Orders 10/05/17 19:31 CULTURE STREP A CONFIRMATION [RM] Stat DRUG SCREEN URINE BIORAD [URCHEM] Stat HCG QUALITATIVE,URINE [URCHEM] Stat INFLUENZA A+B AG SCREEN [RM] Stat STREP SCRN A RAPID W CULT CONF [RM] Stat UA W/MICROSCOPIC [URIN] Stat - Assessment/Plan Last 24 Hours: My Active Orders 10/05/17 19:31 CULTURE STREP A CONFIRMATION [RM] Stat DRUG SCREEN URINE BIORAD [URCHEM] Stat HCG QUALITATIVE,URINE [URCHEM] Stat INFLUENZA A+B AG SCREEN [RM] Stat STREP SCRN A RAPID W CULT CONF [RM] Stat UA W/MICROSCOPIC [URIN] Stat
[2017-10-05 20:19] LABS: CHLORIDE,CL 102 mmol/L (101-111); SODIUM,NA 135 mmol/L (135-145)
== END 2017-10-05 21:03 | disposition home or self-care (01) ==
LOC: DL.ED 19:16
DX: F41.9 Anxiety disorder, unspecified (principal); R11.2 Nausea with vomiting, unspecified; F17.210 Nicotine dependence, cigarettes, uncomplicated; Z79.899 Other long term (current) drug therapy
CPT/HCPCS: 36415; 80053; 80305; 81001; 81025; 85025; 87081; 87430; 87804; 96361; 96374; 99284; J2405; J7030

== ENCOUNTER 2018-06-23 07:04 | Emergency (ER) | payer MEDICAID, OTHER ==
--- NOTE | 2018-06-23 07:28 | EDM.PDOC ---
ED HPI GENERAL MEDICAL PROBLEM - General Chief Complaint: General Stated Complaint: ANXIETY ATTACK, FLU Time Seen by Provider: 06/23/18 07:28 Source of Information: Reports: Patient, RN, RN Notes Reviewed History Limitations: Reports: No Limitations - History of Present Illness INITIAL COMMENTS - FREE TEXT/NARRATIVE: Pt to ER with c/o runny nose, cough, sore throat, sneezing, body aches for the past 3-4 days. Patient states she feels she has had a low grade fever at times, but nothing significant. Patient states she has taken ibuprofen this morning, 1 hour prior to arrival. Patient states she is feeling somewhat anxious this morning. She states she awoke feeling SOB and very anxious. She states when she feels anxious like this, often her Hgb is low. Patient denies chest pains or SOB at this time, N/V/D. Onset: Gradual Onset Date: 06/20/18 Generalized Pain Score (Numeric/FACES): 7 - Related Data Allergies Allergy/AdvReac Type Severity Reaction Status Date / Time No Known Allergies Allergy Verified 06/23/18 07:46 Home Meds: Home Meds Iron,Carbonyl/Ascorbic Acid [Iron 100-Vitamin C Tablet] 1 each PO DAILY #30 tablet 04/07/17 [Rx] Multivitamin [Multi-Vitamin Daily] 1 each PO DAILY #30 tablet 04/07/17 [Rx] Nicotine [Habitrol] 14 mg TRDERM DAILY #7 patch 04/07/17 [Rx] Potassium Chloride [Klor-Con 10] 20 meq PO BIDMEALS #14 tab.er 04/07/17 [Rx] Past Medical History HEENT History: Reports: None Cardiovascular History: Reports: None [employer] 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 Below) 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 Musculoskeletal History: Reports: Back Pain, Chronic Psychiatric History: Reports: Anxiety, Panic Attack Hematologic History: Reports: Anemia - Infectious Disease History Infectious Disease History: Reports: Chicken Pox - Past Surgical History HEENT Surgical History: Reports: Other (See Below) Other HEENT Surgeries/Procedures: teeth removed upper gum GI Surgical History: Reports: Appendectomy Female Surgical History: Reports: Tubal Ligation Social & Family History - Family History Family Medical History: Noncontributory - Caffeine Use Caffeine Use: Reports: Soda ED ROS GENERAL - Review of Systems Review Of Systems: ROS reveals no pertinent complaints other than HPI. ED EXAM, GENERAL - Physical Exam Exam: See Below Exam Limited By: No Limitations General Appearance: Alert, WD/WN, No Apparent Distress, Anxious Eye Exam: Bilateral Eye: EOMI, Normal Inspection Ears: Normal External Exam, Normal Canal, Hearing Grossly Normal Ear Exam: Bilateral Ear: TM Dull Nose: Normal Inspection, Normal Mucosa, No Blood Throat/Mouth: Normal Voice, No Airway Compromise, Inflammation (Mildly erythematous, tonsils +2) Head: Atraumatic, Normocephalic Neck: Normal Inspection, Supple, Non-Tender, Full Range of Motion Respiratory/Chest: No Respiratory Distress, Lungs Clear, Normal Breath Sounds, No Accessory Muscle Use, Chest Non-Tender Cardiovascular: Normal Peripheral Pulses, Regular Rate, Rhythm, No Edema, No Gallop, No JVD, No Murmur, No Rub Peripheral Pulses: 2+: Radial (L), Radial (R) GI/Abdominal: Normal Bowel Sounds, Soft, Non-Tender (Female) Exam: Deferred Rectal (Female) Exam: Deferred Back Exam: Normal Inspection, Full Range of Motion, NT Extremities: Normal Inspection, Normal Range of Motion, Non-Tender, Normal Capillary Refill, No Pedal Edema Neurological: Alert, Oriented, CN II-XII Intact, Normal Cognition, Normal Gait, Normal Reflexes, No Motor/Sensory Deficits Psychiatric: Normal Affect, Normal Mood, Anxious Skin Exam: Warm, Dry, Intact, Normal Color, No Rash Lymphatic: No Adenopathy Course - Vital Signs Last Recorded V/S: Last Vital Signs Temp 98.2 F 06/23/18 07:40 Pulse 101 H 06/23/18 07:40 Resp 18 06/23/18 07:40 BP 129/83 06/23/18 07:40 Pulse Ox 97 06/23/18 07:40 - Orders/Labs/Meds Orders: Active Orders 24 hr Category Date Time Status Peripheral IV Care [RC] . DIRECTED Care 06/23/18 08:31 Active CULTURE STREP A CONFIRMATION [] Stat Lab 06/23/18 07:30 Results STREP SCRN A RAPID W CULT CONF [] Stat Lab 06/23/18 07:30 Results Sodium Chloride 0.9% [Saline Flush] Med 06/23/18 08:30 Active 10 ml FLUSH ASDIRECTED PRN Peripheral IV Insertion Adult [OM.PC] Stat Oth 06/23/18 08:30 Ordered Medication Orders Sodium Chloride (Saline Flush) 10 ml FLUSH ASDIRECTED PRN PRN Reason: Keep Vein Open Last Admin: 06/23/18 09:01 Dose: 10 ml Labs: Laboratory Tests 06/23/18 06/23/18 Range/Units 07:38 07:38 WBC 4.6 L (5.0-10.0) 10^3/uL RBC 4.29 (4.2-5.4) 10^6/uL Hgb 13.1 (12.0-16.0) g/dL Hct 40.1 (37.0-47.0) % MCV 93.5 (80-100) fL MCH 30.5 (27.0-34.0) pg MCHC 32.7 L (33.0-35.0) g/dL Plt Count 140 L (150-450) 10^3/uL Neut % (Auto) 40.0 L (42.2-75.2) % Lymph % (Auto) 46.9 (20.5-50.1) % [place] % (Auto) 8.3 H (2-8) % Eos % (Auto) 4.4 H (1.0-3.0) % Baso % (Auto) 0.4 (0.0-1.0) % Sodium 137 (135-145) mmol/L Potassium 2.9 L (3.6-5.0) mmol/L Chloride 103 (101-111) mmol/L Carbon Dioxide 20.0 L (21.0-31.0) mmol/L Anion Gap 16.9 BUN 4 L (7-18) mg/dL Creatinine 0.6 (0.6-1.3) mg/dL Est Cr Clr Drug Dosing 122.51 mL/min Estimated GFR (MDRD) > 60 BUN/Creatinine Ratio 6.66 Glucose 162 H (74-105) mg/dL Calcium 8.7 (8.4-10.2) mg/dl Total Bilirubin 0.8 (0.2-1.0) mg/dL AST 45 H (10-42) IU/L ALT 39 (10-60) IU/L Alkaline Phosphatase 77 (42-121) IU/L Total Protein 8.1 (6.7-8.2) g/dl Albumin 4.1 (3.2-5.5) g/dl Globulin 4.0 Albumin/Globulin Ratio 1.03 Rapid Strep: Negative Influenza A: Negative Influenza B: Negative Meds: Medications Generic Name Dose Route Start Last Admin Trade Name Kalq PRN Reason Stop Dose Admin Sodium Chloride 10 ml 06/23/18 08:30 06/23/18 09:01 Saline Flush FLUSH 10 ml ASDIRECTED PRN Administration Keep Vein Open Discontinued Medications Generic Name Dose Route Start Last Admin Trade Name Kalq PRN Reason Stop Dose Admin Sodium Chloride 1,000 mls @ 999 mls/hr 06/23/18 08:30 06/23/18 08:53 Normal Saline IV 06/23/18 09:30 999 mls/hr .BOLUS ONE Administration Lorazepam 1 mg 06/23/18 08:07 06/23/18 08:17 Ativan PO 06/23/18 08:08 1 mg ONETIME ONE Administration Ondansetron HCl 4 mg 06/23/18 08:10 06/23/18 08:19 Zofran Odt PO 06/23/18 08:11 4 mg ONETIME ONE Administration Potassium Chloride 40 meq 06/23/18 08:10 06/23/18 08:19 Klor-Con 10 PO 06/23/18 08:11 40 meq ONETIME ONE Administration Departure - Departure Time of Disposition: 10:25 Disposition: Home, Self-Care 01 Condition: Fair Clinical Impression: Hypokalemia, Anxiety, Viral upper respiratory illness - Discharge Information *PRESCRIPTION DRUG MONITORING PROGRAM REVIEWED*: No *COPY OF PRESCRIPTION DRUG MONITORING REPORT IN PATIENT ERICK: No Instructions: Viral Respiratory Infection, [id number], Panic Attack, Easy-to- Read, Hypokalemia Forms: ED Department Discharge Additional Instructions: Take your home medications as prescribed Drink plenty of fluids May use Tylenol and/or ibuprofen as directed for pain/fever Rest Follow up with your primary care facility - My Orders Last 24 Hours: My Active Orders 06/23/18 07:30 CULTURE STREP A CONFIRMATION [RM] Stat STREP SCRN A RAPID W CULT CONF [RM] Stat 06/23/18 08:30 Sodium Chloride 0.9% [Saline Flush] 10 ml FLUSH ASDIRECTED PRN Peripheral IV Insertion Adult [OM.PC] Stat 06/23/18 08:31 Peripheral IV Care [RC] . DIRECTED - Assessment/Plan Last 24 Hours: My Active Orders 06/23/18 07:30 CULTURE STREP A CONFIRMATION [RM] Stat STREP SCRN A RAPID W CULT CONF [RM] Stat 06/23/18 08:30 Sodium Chloride 0.9% [Saline Flush] 10 ml FLUSH ASDIRECTED PRN Peripheral IV Insertion Adult [OM.PC] Stat 06/23/18 08:31 Peripheral IV Care [RC] . DIRECTED
[2018-06-23 08:02] LABS: ANION GAP 16.9; CHLORIDE,CL 103 mmol/L (101-111); SODIUM,NA 137 mmol/L (135-145)
[2018-06-23] MEDS ORDERED: LORazepam 1 MG Tab PO ONE (08:07)
[2018-06-23] MEDS ORDERED: Ondansetron 4 MG Tab.DIS PO ONE (08:10)
[2018-06-23] MEDS ORDERED: Potassium Chloride 10 MEQ Tab.ER PO ONE (08:10)
[2018-06-23] MEDS ORDERED: Sodium Chloride 0.9% 1,000 ML IV ONE (08:30)
[2018-06-23] MEDS ORDERED: Sodium Chloride 0.9% 10 ML Syringe FLUSH PRN (08:30)
== END 2018-06-23 10:36 | disposition home or self-care (01) ==
LOC: DL.ED 07:04
DX: J06.9 Acute upper respiratory infection, unspecified (principal); F41.9 Anxiety disorder, unspecified; E87.6 Hypokalemia; Z79.899 Other long term (current) drug therapy
CPT/HCPCS: 36415; 80053; 85025; 87081; 87430; 87804; 96365; 99283; A9270; J7030

== ENCOUNTER 2024-10-21 11:39 | Emergency (ER) | payer MEDICAID ==
[2024-10-21] MEDS ORDERED: Sodium Chloride 0.9% 10 ML Syringe FLUSH PRN (12:25)
[2024-10-21] MEDS: Sodium Chloride 0.9% 1,000 ML IV ONE ×2 (12:26→13:21)
[2024-10-21] MEDS: Acetaminophen 500 MG Tab PO ONE (12:56)
[2024-10-21 13:10] LABS: ALANINE AMINOTRANSFERASE,ALT 20 U/L (14-59); ALBUMIN 2.2 g/dL (3.4-5.0); ALKALINE PHOSPHATASE 172 U/L (46-116); ANION GAP 13.6 mEq/L (7-13); ASPARTATE AMNIOTRANSFERASE,AST 16 U/L (15-37); BILIRUBIN TOTAL 1.1 mg/dL (0.2-1.0); BLOOD UREA NITROGEN,BUN 33 mg/dL (7-18); BUN/CREATININE RATIO 20.4 (No establ ref range); CALCIUM 8.7 mg/dL (8.5-10.1); CARBON DIOXIDE,CO2 23 mmol/L (21-32); CHLORIDE,CL 89 mmol/L (98-107); CREATININE 1.62 mg/dL (0.55-1.02); MAGNESIUM 2.1 mg/dL (1.8-2.4); POTASSIUM,K 3.6 mmol/L (3.5-5.1); PROTEIN TOTAL,TP 7.4 g/dL (6.4-8.2); SODIUM,NA 122 mmol/L (136-145)
[2024-10-21 13:17] LABS: HEMATOCRIT 33.6 % (37.0-47.0); HEMOGLOBIN 11.1 g/dL (12.0-16.0); MEAN CORPUSCULAR HEMOGLOBIN 24.9 pg (27.0-34.0); MEAN CORPUSCULAR VOLUME 75.3 fL (80-100); RED BLOOD CELL COUNT 4.46 10^6/uL (4.2-5.4); WHITE BLOOD CELL COUNT,WBC 12.3 10^3/uL (5.0-10.0)
[2024-10-21 13:19] LABS: A/G RATIO 0.42; C-REACTIVE PROTEIN > 25.00 ng/dL (<=0.50); ESTIMATED GFR 40 mL/min (>=60); GLUCOSE RANDOM 461 mg/dL (70-99); LACTIC ACID 2.7 mmol/L (0.4-2.0)
[2024-10-21 13:38] LABS: PROTHROMBIN TIME 10.2 SEC (9.0-12.0); PTT,PARTIAL THROMBOPLSTIN TIME 30.8 SEC (22.0-34.0)
[2024-10-21 13:38] LABS: APPEARANCE,URINE CLOUDY (CLEAR); BILIRUBIN,URINE SMALL (NEGATIVE); GLUCOSE,URINE 500 (NEGATIVE); KETONES,URINE TRACE (NEGATIVE); LEUKOCYTE ESTERASE,URINE NEGATIVE (NEGATIVE); NITRITE,URINE NEGATIVE (NEGATIVE); OCCULT BLOOD,URINE LARGE (NEGATIVE); PH,URINE 5.5 (5.0-9.0); PROTEIN,URINE >=300 (NEGATIVE); UROBILINOGEN,URINE 0.2 mg/dL (0.2-1.0)
[2024-10-21 13:39] LABS: HEMOGLOBIN A1C 10.7 % (<5.7)
[2024-10-21 13:39] LABS: COLOR,URINE RED (YELLOW)
[2024-10-21] MEDS: Lactated Ringers 1,000 ML IV ONE (14:01)
[2024-10-21 14:09] LABS: BAND PERCENT MAN 5 %; BASOPHILS PERCENT MAN 1; EOSINOPHILS PERCENT AUTO 0.2 % (1.0-3.0); EOSINOPHILS PERCENT MAN 1 % (1-3); LYMPHOCYTES PERCENT AUTO 3.8 % (20.5-50.1); LYMPHOCYTES PERCENT MAN 6 % (20-50); MONOCYTES PERCENT AUTO 2.7 % (2-8); MONOCYTES PERCENT MAN 2 % (2-8); NEUTROPHILS PERCENT AUTO 93.3 % (42.2-75.2); PLATELET COUNT,PLT 30 10^3/uL (150-450); SEG NEUTROPHILS PERCENT MAN 85 % (42-75)
[2024-10-21 14:09] LABS: O2 DELIVERY DEVICE ROOM AIR
[2024-10-21 14:10] LABS: ANISOCYTOSIS 1+ SLIGHT; HYPOCHROMASIA 1+ SLIGHT; MICROCYTOSIS 1+ SLIGHT; PLATELET COUNT ESTIMATE MARKED DEC
[2024-10-21] MEDS: Iopamidol 612 MG/ML 100 ML Bottle IVPUSH ONE (14:14)
[2024-10-21 14:15] LABS: BICARBONATE,VENOUS 19 mmol/l (19-25); O2 SATURATION VENOUS 68.2 % (60-80); PCO2 VENOUS 33 mmHg (41-51); PH,VENOUS 7.38 (7.31-7.41); PO2 VENOUS 47 mmHg (35-42)
[2024-10-21 14:26] LABS: RBC,URINE PACKED /HPF (0-5)
[2024-10-21 14:27] LABS: WBC,URINE 50-75 /HPF (0-5/HPF)
[2024-10-21 14:29] LABS: AMORPHOUS SEDIMENT,URINE MODERATE /HPF (NOT SEEN); BACTERIA,URINE FEW /HPF (0-FEW/HPF); EPITHELIAL CELLS,URINE FEW /HPF (NOT SEEN)
[2024-10-21] MEDS: VANCOmycin 1.5 GM in Sodium Chloride 0.9% 250 ML IV ONE (14:29)
[2024-10-21] MEDS: Norepinephrine Bit/D5W Premix 250 ML IV SCH (14:29)
[2024-10-21] MEDS: Ondansetron 4 MG/2 ML SDV IVPUSH ONE (14:36)
[2024-10-21] MEDS: cefTRIAXone 1 GM Vial IVPUSH ONE (15:19)
[2024-10-21] MEDS: Ketorolac 30 MG/ML SDV IVPUSH ONE (16:13)
== END 2024-10-21 16:48 ==
LOC: DL.ED 11:39
DX: A41.9 Sepsis, unspecified organism (principal); N12 Tubulo-interstitial nephritis, not specified as acute or chronic; D69.6 Thrombocytopenia, unspecified; E11.9 Type 2 diabetes mellitus without complications; Z90.49 Acquired absence of other specified parts of digestive tract
CPT/HCPCS: 36415; 71045; 74177; 80053; 81001; 81025; 82009; 82803; 82947; 83036; 83605; 83735; 85025; 85610; 85730; 86140; 87040; 87077; 87186; 96361; 96365; 96367; 96375; 99285; A9270; J0696; J1885; J2405; J7030; J7050; J7120; Q9967

== ENCOUNTER 2025-05-01 11:20 | Emergency (ER) | payer MEDICAID ==
[2025-05-01] MEDS: Ondansetron 4 MG/2 ML SDV IVPUSH ONE (11:43)
[2025-05-01 11:46] LABS: PLATELET COUNT,PLT 141 10^3/uL (150-450); RED BLOOD CELL COUNT 3.43 10^6/uL (4.2-5.4); WHITE BLOOD CELL COUNT,WBC 2.8 10^3/uL (5.0-10.0)
[2025-05-01] MEDS: Thiamine 100 MG in Sodium Chloride 0.9% 1,000 ML IV ONE (11:48)
[2025-05-01 12:08] LABS: A/G RATIO 0.8; ALANINE AMINOTRANSFERASE,ALT 39.0 U/L (14-59); ASPARTATE AMNIOTRANSFERASE,AST 52.0 U/L (15-37); BILIRUBIN TOTAL 0.5 mg/dL (0.2-1.0); BLOOD UREA NITROGEN,BUN 6.0 mg/dL (7-18); CARBON DIOXIDE,CO2 28.0 mmol/L (21-32); CHLORIDE,CL 104.0 mmol/L (98-107); CREATININE 0.73 mg/dL (0.55-1.02); EST CRCL DRUG DOSING (CG) 93.98 mL/min; ESTIMATED GFR 105.0 mL/min (>=60); ETHANOL BLOOD MEDICAL 191.0 mg/dL (0); GLUCOSE RANDOM 160.0 mg/dL (70-99); POTASSIUM,K 3.3 mmol/L (3.5-5.1); PROTEIN TOTAL,TP 8.0 g/dL (6.4-8.2); SODIUM,NA 145.0 mmol/L (136-145)
[2025-05-01] MEDS ORDERED: D5 1/2 NS w/ 40 mEq/L KCl 1,000 ML IV SCH (12:30)
[2025-05-01 12:41] LABS: BASOPHILS PERCENT AUTO 1.4 % (0.0-1.0); EOSINOPHILS PERCENT AUTO 1.4 % (1.0-3.0); LYMPHOCYTES PERCENT AUTO 27.2 % (20.5-50.1); MONOCYTES PERCENT AUTO 12.5 % (2-8); NEUTROPHILS PERCENT AUTO 57.5 % (42.2-75.2)
[2025-05-01 12:43] LABS: BASOPHILS PERCENT MAN 1; EOSINOPHILS PERCENT MAN 1 % (1-3); LYMPHOCYTES PERCENT MAN 27 % (20-50); MONOCYTES PERCENT MAN 9 % (2-8); SEG NEUTROPHILS PERCENT MAN 62 % (42-75)
[2025-05-01] MEDS: D5 1/2 NS w/ 20 mEq/L KCl 1,000 ML IV SCH (12:57)
== END 2025-05-01 15:18 | disposition home or self-care (01) ==
LOC: DL.ED 11:20
DX: T51.0X1A Toxic effect of ethanol, accidental (unintentional), initial encounter (principal); E11.9 Type 2 diabetes mellitus without complications; F17.200 Nicotine dependence, unspecified, uncomplicated; Z90.49 Acquired absence of other specified parts of digestive tract; Z79.899 Other long term (current) drug therapy; Y90.6 Blood alcohol level of 120-199 mg/100 ml
CPT/HCPCS: 36415; 80053; 80307; 81025; 82947; 83735; 85025; 96365; 96366; 96367; 96375; 99284; J2405; J3411; J3480